=== PATIENT | female | born 1995 | race Caucasian/White ===

== ENCOUNTER 2019-05-28 19:05 | Emergency (ER) | payer BC ==
--- NOTE | 2019-05-28 19:39 | PDOC ---
Rapid Medical Evaluation Chief Complaint: Syncope/Near Syncope Time Seen by Provider: 05/28/19 19:37 Medical Evaluation: Allergies Allergy/AdvReac Type Severity Reaction Status Date / Time amoxicillin Allergy Mild Rash Verified 05/28/19 19:33 05/28/19 19:38 Pt c/o: fainting spells x 3 today and caught by boyfriend, also with rt flank pain since this am, no other complaints, normal menses Pt on brief exam: no cva tenderness, vss, no ruq tenderness Pt ordered for: labs, urine, ekg, Pt to proceed to the ED Discharge Disposition - Diagnosis Fainting, At risk for elopement from emergency department - Discharge Dispostion Disposition: ELOPED Condition at time of disposition: Unchanged/Unknown - Referrals - Patient Instructions - Post Discharge Activity
[2019-05-28 19:49] VITALS: BP 93/62; PULSE 97; BMI 24.7
== END 2019-05-28 21:18 | disposition left against medical advice (07) ==
LOC: JER 19:05
DX: R55 Syncope and collapse (principal)
CPT/HCPCS: 99281-25